=== PATIENT | female | born 1975 | race Two or more races ===

== ENCOUNTER 2020-11-18 00:20 | Emergency (ER) | payer OTHER ==
[~2020-11-18] VITALS: Ht 172.7 cm; Wt 127.0 kg
[2020-11-18] MEDS ORDERED: NORFLEX100MG PO (09:17)
[2020-11-18] MEDS ORDERED: KETO10TA2 PO (09:17)
== END 2020-11-18 09:58 | disposition home or self-care (01) ==
LOC: ER 00:20
DX: M54.59 Other low back pain (principal)